=== PATIENT | female | born 1950 | race Caucasian/White ===

== ENCOUNTER 2020-11-30 12:04 | Emergency (ER) | payer MEDICARE, SELFPAY ==
[2020-11-30 12:12] VITALS: BP 181/82; PULSE 92; RESP 16; TEMP 36.8; O2SAT 98
--- NOTE | 2020-11-30 12:35 | ED_ITS ---
HPI - General Adult General: Chief complaint: Animal Bite Stated complaint: Dog Bite Time Seen by Provider: 11/30/20 12:08 History of Present Illness: HPI narrative: 70-year-old female presented to emergency room after sustaining a dog bite to the left arm at 830 this morning. Patient reports that the dog is a home pet that is fully vaccinated. Patient attempted to irrigate the site with peroxide and dabbed in alcohol. Patient is unaware of her tetanus status. No focal loss of function or significant bleeding. Onset:3 hrs ago Duration:3 hrs Location:home Severity:moderate Review of Systems Narrative: Constitutional: No fever, no chills. HEENT: No vision changes CV: No chest pain, no palpitations PULM: no cough, no dyspnea. GI: No abdominal pain, no N/V/D. : No dysuria MSKEL: No muscle pain SKIN: +LUE dog bite NEURO: No headache, no focal weakness. HEME: No visible bruises PSYCH: Normal mood [facility] Female Reproductive History: Date of last menstrual period: 05/04/20 Physical Exam Narrative: EXAM NARRATIVE: Head: Atraumatic Eyes: PERRL, conjunctiva without injection ENT: Mucous membrane moist NECK: Supple, ROM intact LUNGS: LCTAB, no crackles/rhonchi CV: RRR ABDOMEN: Soft, nontender in all quadrants EXTREMITY: Normal ROM, +L distal forearm stellate laceration SKIN: +L forearm laceration NEURO: Awake and alert, no focal motor deficits PSYCH: Normal mood and affect Course Vital Signs: Vital signs: Vital Signs Temperature 98.2 F 11/30/20 12:12 Pulse Rate 92 11/30/20 12:12 Respiratory Rate 16 11/30/20 12:12 Blood Pressure 181/82 11/30/20 12:12 Pulse Oximetry 98 11/30/20 12:12 MDM - General Adult MDM Narrative: Medical decision making narrative: 70-year-old female presents emergency room after sustaining a dog bite wound. Patient appears to have a stellate laceration over the left forearm. Neurovascularly intact in the upper extremity. Wound was extensively irrigated today. Patient received Tdap. Will not close wound given high risks of infection. Patient has Augmentin allergy will prescribe Bactrim and clindamycin Rx clindamycin 450mg TID and Bactrim DS BID x 10 days Disposition: Discharge. Patient counseled regarding diagnostic impression, treatment plan. Patient given ED strict return precautions to return for continuation, worsening, or development of new symptoms. Instructed to f/u w/ PCP for further wound check today. Patient verbalized understanding. Discharge Plan Discharge Patient Disposition: Home Clinical Impression: Dog bite Condition: Stable Prescriptions: New clindamycin HCl 300 mg capsule 450 mg PO TID 10 Days Qty: 45 RF: 0 Bactrim DS 800-160 mg tablet 1 tab PO BID 10 Days Qty: 20 RF: 0 Discharge Orders: Discharge ED (Routine); Ordered 11/30/20 Ordered By: Penelope Tran Discharge Diet: Advance as tolerated Discharge Activity: Resume usual activity Patient Instructions: Animal Bite (ED) Activity Restrictions/Additional Instructions: Come back to the emergency room for your bite wound is infected, if you have any fever or chills, any worsening symptoms, any new concerning complaints. Coding Level of Care Code ED Keyboard Instrument Tuner for Victoriano Mcginnis
[2020-11-30] MEDS: tetanus-dipt-pertussis 0.5 mL SDV IM (12:59)
== END 2020-11-30 13:08 | disposition home or self-care (01) ==
PROVIDERS: Emergency Provider Emergency Medicine
DX: S41.152A Open bite of left upper arm, initial encounter (principal); W54.0XXA Bitten by dog, initial encounter; Z23 Encounter for immunization
CPT/HCPCS: 90471; 90715; 99282

== ENCOUNTER 2022-03-12 10:03 | Observation (INO) | payer MEDICARE, SELFPAY ==
[2022-03-07 09:49] VITALS: BMI 25.9
--- NOTE | 2022-03-07 10:18 | ECG_ITS ---
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 Measurements Intervals [place] Rate: 52 P: 30 ME: 164 QRS: 48 QRSD: 76 T: 4 QT: 425 QTc: 399 Interpretive Statements SINUS BRADYCARDIA LOW QRS VOLTAGE IN PRECORDIAL LEADS [QRS DEFLECTION < 1.0 mV IN CHEST LEADS] SEPTAL MYOCARDIAL INFARCTION , PROBABLY OLD [40+ ms Q WAVE IN V1/V2] No previous ECG available for comparison Electronically Signed On 03-07-2022 16:00:47 BUSINESS PROCESS ANALYST by Rosa Maria Samson M.D. [id number]
--- NOTE | 2022-03-07 10:23 | P.ANESASSM_ITS ---
Pre-Anesthetic Assessment Height/Weight: Height 1.63 m Weight 68.492 kg Operation Date: 03/12/22 08:50 Proposed Procedures p Laparoscopic assisted vaginal hysterectomy, bilateral salpingo-oophorectomy 34721, Possible anterior and posterior repair 16707, Possible sling 38095 N81.4(Not Applicable) - Linda Donaldson MD s Laparoscopic Salpingo Oophorectomy(Bilateral) - Linda Donaldson MD s Anterior Repair(Not Applicable) - Linda Donaldson MD p Posterior Repair(Not Applicable) - Linda Donaldson MD s Sling(Not Applicable) - Linda Donaldson MD Familial anesthetic complications: None Social No alcohol and No tobacco Exam alert, oriented x 3, clear to auscultation bilaterally and regular rate & rhythm Airway Mallampati: Class II Dentition: partials Pulmonary None reported CV/HEM None reported does lots of walking, able to achieve 4 METS, works at [employer] doing activities None reported Hepatic None reported GI None reported Metabolic None reported Musc/skel None reported Neuropsych None reported Anesthetic Plan ASA status: 1 Anesthesia: General Risk of > 500 ml blood loss (7ml/kg in children): No Medications/Allergies Home Medications Medication Instructions Recorded Confirmed Last Taken Type biotin-calcium carbonate 800 5,000 tab PO 1XD 03/07/22 03/07/22 03/05/22 History mcg-195 mg tablet (Biotin-Calcium) ibuprofen 200 mg capsule 200 mg PO Q6H PRN Pain (Scale 03/07/22 03/07/22 0 03/07/22 History Score 4-6) nacbbtnyk-ydt-eqly fumarate 18 1 tab-cap PO QAM 03/07/22 03/07/22 03/06/22 History mg-FA 600 mcg-vit K 40 mcg capsule (Multi For Her) Allergies Allergy/AdvReac Type Severity Reaction Status Date / Time Penicillins Allergy Unknown Verified 03/07/22 09:41 PFSH Anesthesia Family History Mother Diabetes Heart disease Father Diabetes Hypercholesteremia Hypertension Denies family history of Colon cancer Ovarian cancer Breast cancer Uterine cancer Thyroid disease Stroke Female Reproductive History Date of last menstrual period: 05/04/20 Data Anesthesia Cardiac Studies: No Data to Display
[2022-03-07 10:27] LABS: Basophils % 0.8 %; Eosinophils % 0.6 %; Hematocrit 40.6 % (37.0-47.0); Hemoglobin 13.9 g/dL (11.5-15.3); Lymphocytes # 1.9 10^3/uL (0.8-4.8); Lymphocytes % 38.3 %; Mean Corpuscular HGB Conc 34.2 g/dL (30.0-36.0); Mean Corpuscular Hemoglobin 30.8 pg (28.0-34.0); Mean Corpuscular Volume 89.8 fl (81-99); Mean Platelet Volume 8.5 fL (7.4-10.4); Monocytes # 0.3 10^3/uL (0.2-0.9); Neutrophils # 2.74 10^3/uL (1.8-7.7); Neutrophils % 55.3 %; Nucleated Red Blood Cells % 0 %; Platelet Count 261 10^3/cmm (130-400); Red Blood Count 4.52 10^6/uL (4.1-5.3); Red Cell Distribution Width 11.9 % (12.1-15.1)
[2022-03-07 10:46] LABS: Anion Gap 20.1 (5-19); Blood Urea Nitrogen 13 mg/dL (8-23); Calcium 9.3 mg/dL (8.5-10.5); Carbon Dioxide 18 mmol/L (22-29); Chloride 99 mmol/L (98-107); Glomerular Filtration Rate 98.8 mL/min (90-130); Glucose 108 mg/dL (65-115); Osmolality Calculated 277 mOsm/kg (285-295); Potassium 4.1 mmol/L (3.5-5.1); Sodium 133 mmol/L (136-145)
[2022-03-12] VITALS (21 sets, daily range): BP systolic 88–136; BP diastolic 57–113; PULSE 72–107; RESP 14–20; TEMP 36.4–36.9; O2SAT 90–100; BMI 25.9
[2022-03-12] MEDS: gabapentin 300 mg Capsule PO (06:14)
[2022-03-12] MEDS: sodium chloride 0.9% 1,000 ML 30 ML IV (06:14)
[2022-03-12] MEDS: CELEcoxib 200 mg Capsule 400 MG PO (06:14)
[2022-03-12] MEDS: phenazopyridine 100 mg Tablet 200 MG PO ×3 (06:14→20:18)
[2022-03-12] MEDS: acetaminophen 1,000 MG/100 ML PIGGYBACK 400 MG IV (06:15)
[2022-03-12] MEDS: scopolamine 1.5 Patch 1 PATCH TRANSDERMA (06:15)
[2022-03-12] MEDS: midazolam 1 mg/mL INJ 2 mL 2 MG IVP (07:00)
[2022-03-12] MEDS: ceFAZolin 2,000 MG in sodium chloride 0.9% (plus) 50 ML 100 MG IV ×3 (07:05→22:32)
--- NOTE | 2022-03-12 07:07 | W.PM.OPSUD ---
Surgery/Procedure H&P Update DATE OF PROCEDURE: March 12, 2022 DATE H&P PERFORMED: 03/07/22 H&P UPDATE INFORMATION: I have reviewed H&P completed within last 30 days, I have examined patient prior to procedure and No changes to prior documentation PREOP DIAGNOSIS: Cystocele, uterine prolapse PLANNED PROCEDURE: Operation Date: 03/12/22 07:00 Proposed Procedures p Laparoscopic assisted vaginal hysterectomy, bilateral salpingo-oophorectomy 74463, Possible anterior and posterior repair 46786, Possible sling 34250 N81.4(Not Applicable) - Linda Donaldson MD s Laparoscopic Salpingo Oophorectomy(Bilateral) - Linda Donaldson MD s Anterior Repair(Not Applicable) - Linda Donaldson MD p Posterior Repair(Not Applicable) - Linda Donaldson MD s Sling(Not Applicable) - Linda Donaldson MD Related Problem List Diagnoses (1) Cystocele: (2) Uterine prolapse:
--- NOTE | 2022-03-12 07:39 | P.ANESUD_ITS ---
Pre-Anesthetic Update Pre-Anesthetic Assessment: Date of Surgery/Procedure: 03/12/22 Preop Jyotsna gnosis: Cystocele, uterine prolapse Proposed Procedure: Operation Date: 03/12/22 07:00 Proposed Procedures p Laparoscopic assisted vaginal hysterectomy, bilateral salpingo-oophorectomy 99985, Possible anterior and posterior repair 83447, Possible sling 60213 N81.4(Not Applicable) - Linda Donaldson MD s Laparoscopic Salpingo Oophorectomy(Bilateral) - Linda Donaldson MD s Anterior Repair(Not Applicable) - Linda Donaldson MD p Posterior Repair(Not Applicable) - Linda Donaldson MD s Sling(Not Applicable) - Linda Donaldson MD Any changes to Pre-Anesthetic Assessment?: No Last Intake: Intake Last Liquid Date 03/11/22 Last Liquid Time 20:00 Last Solid Date 03/11/22 Last Solid Time 08:00 Vitals: Temperature 98.5 F 03/12/22 05:47 Temperature Source Temporal Artery S can 03/12/22 05:47 Pulse Rate 98 03/12/22 05:47 Pulse Rhythm 03/12/22 05:47 Pulse Strength 3+ Normal 03/12/22 05:47 Respiratory Rate 18 03/12/22 05:47 Blood Pressure 118/65 03/12/22 06:58 Blood Pressure Greer n 82 03/12/22 06:58 Pulse Oximetry 98 03/12/22 05:47 Oxygen Delivery Me thod 03/12/22 05:47 Exam: Pre-Anes Outpt Exam: alert, oriented x 3, clear to auscultation bilaterally and regular rate & rhythm Cardiac Studies: No Data to Display
[2022-03-12] MEDS: vasopressin 20 unit/mL INJ INJECTION (07:45)
--- NOTE | 2022-03-12 09:22 | P.OP_ITS ---
Operative Report Date of procedure: March 12, 2022 Pre-op diagnosis: Preop Diagnosis Cystocele, uterine prolapse Post-op diagnosis: same Post-op findings: normal appearing vagina Procedure done: LAVH. BSO, anterior repair, perineorrhaphy, cystoscopy Specimens removed/disposition: uterus, tubes, ovaries to pathology Surgeon: Linda Donaldson Anesthesia: General Estimated blood loss (mL): 25 IV fluids (mL): 1,800 Urine output (mL): 800 Complications: none Findings: 6 week sized uterus, normal appearing tubes and ovaries. Grade 3 uterine prolapse with grade 2 cystocele, loose perineal body Condition: stable Disposition: PACU Procedure: The patient was taken to the operating room where general anesthesia was administered and found to be adequate. She was prepped and draped in the normal sterile fashion in the dorsal lithotomy position in Kwasi stirrups. A Aguilar catheter was placed. A weighted speculum was placed into the vagina and the anterior lip of the cervix was grasped with a single tooth tenaculum. The Zumi uterine manipulator was placed. The weighted speculum was removed. The gloves were changed and attention was turned to the abdomen. A 5 mm infraumbilical incision was made. Using a 5 mm port with the camera, the port was placed into the abdomen. The abdomen was insufflated. Two low, lateral 5 mm ports were placed on the left and right under direct visualization from the camera. The right tube was grasped and elevated. Using the laparoscopic cautery, the IP ligament was cauterized and cut. I continued to cauterize inferior to the fallopian tube, up to the uterus. This was performed the same way on the left. Bilateral tubes and ovaries were left attached to the uterus. The uteroovarian ligaments as well as the round ligaments were ligated. Attention was then turned to the vaginal portion of the procedure. The weighted speculum was placed into the vagina. The zumi manipulator was removed. The single tooth tenaculum was removed and replaced with the torrey's tenaculum. 10 mL of dilute Pitressin was injected at the vesicovaginal junction. A circumferential incision was made at the vesicovaginal junction and the vaginal mucosa reflected cephalad. The posterior peritoneum was entered sharply with the Metzenbaum scissors and the long weighted speculum replaced. Using the Alen clamps the uterosacral ligaments were clamped cut and suture- ligated. The anterior peritoneum was entered sharply with the metzenbaum s cissors. Then sequentially the uterine arteries and cardinal ligaments were clamped cut and suture-ligated. A single-tooth tenaculum was used to deliver the uterus. The remaining segement of the utero-ovarian ligaments were clamped cut and suture-ligated bilaterally and the specimen was removed. There was good hemostasis with only mild bleeding from the cuff. The peritoneum was closed with a pursestring using 2-0 Vicryl. The vaginal cuff was closed with 0 Vicryl in a running locked pattern incorporating the uterosacral ligaments into the lateral aspects of the vaginal cuff. The Aguilar catheter was removed and the cystoscope advanced into the bladder. The patient was given pyridium and bilateral spill was noted. There were no injuries or deficits noted in the bladder. The cystoscope was removed and the Aguilar was replaced. Attention was then turned to the anterior repair. The vaginal cuff was identified and an allis clamp was placed in the midline of the vaginal mucosa, approximately 2 cm anterior to the cuff. A second allis clamp was placed in the midline of the vaginal mucosa, approximately 3 cm inferior to the urethra. An incision was made in the midline from clamp to clamp. The vaginal mucosa was clamped laterally and the cystocle dissected off of the vesicovaginal fascia. The cystocele was packed away and the vesicovaginal fascia brought together in the midline with figure of 8 interrupted sutures of O-Vicryl. The packing was removed and the excess vaginal tissue trimmed. The incision was repaired with 0-Vicryl in a running fashion. The Aguilar catheter was removed and the cystoscope advanced into the bladder. There were no deficits noted to be in the bladder. Attention was then turned to the perineorrhphy. Allis clamps were placed on the posterior fourchette. A 3 cm wedge of the fourchette was removed. This was repaired in the usual fashion with O-vicryl. Vaginal packing was placed. The patient tolerated the procedure well. Sponge, lap and needle counts were correct times three. The abdominal incisions were closed with 3-o vicryl with skin glue. She was taken to the recovery room in stable condition.
[2022-03-12] MEDS: fentaNYL 50 mcg/mL INJ 2mL IVP (09:48)
[2022-03-12] MEDS: dextrose 5%-lactated ringers 1,000 ML 125 ML IV ×2 (11:19→20:18)
[2022-03-12] MEDS: HYDROcodone-acetaminophen 5-325 mg Tablet PO ×2 (12:45→19:17)
[2022-03-12] MEDS: ketorolac 30 mg/mL INJ IVP ×2 (14:44→22:32)
--- NOTE | 2022-03-12 15:15 | PC.NURSE ---
WHEN PATIENT CAME BACK FROM OR SHE COULD NOT OPEN HER EYES SHE SAID THAT THEY HURT, PATIENT STATED THAT THEY DID NOT HURT PRIOR TO SURGERY. PATIENT DID NOT WANT TO OPEN HER EYES SHE SAID IT WAS TO DARK AND HER ROOM WAS DARK, NO LIGHTS ON.THIS BED BUG EXTERMINATOR TALKED WITH NEPTALI AND ABDELRAHMAN AFTER ABOUT 30- HOUR AND THEY SAID THAT MAYBE HER NAUSEA PATCH MAY BE THE PROBLEM, PATCH REMOVED AND SITE CLEANED WITH ALCOHOL. AFTER ABOUT 30 MINUTES SHE STATED THAT THEY STILL HURT HER BUT SHE WAS ABLE TO OPEN THEM A LITTLE BUT THEY HURT REALLY BAD WHEN SHE DID. THIS BED BUG EXTERMINATOR WALKED HER DAUGHTER OUT AND THEN I STOPPED BY OR AND TALKED WITH DR. LINN AND LIONEL AND THEY GAVE ME SOME EYE OINTMENT TO TRY. RETURNED TO OB AND TOLD PATIENT WHAT I HAD TO TRY AND SHE WAS IN TOTAL AGREEMENT. TOLD HER TO TRY NOT TO RUB HER EYES AND THEN I WENT BACK IN AT THE ONE HOUR OLINDA AND SHE WAS ABLE TO OPEN HER EYES BUT STATED THAT THEY STILL FELT SCRATHY. 1500 WAS GOING TO GET PATIENT UP BUT SHE WANTED TO WAIT TILL HER EYES FELT BETTER AND SHE COULD KEEP THEM OPEN BETTER. SHE SAID THAT THEY STILL FELT TO BAD TO HOLD THEM OPEN. TOLD HER THAT WAS OK AND WE WOULD TRY LATER.
--- NOTE | 2022-03-12 16:00 | ANE.PACU2 ---
Inpatient post-anesthesia follow up: Airway intact: Yes Vital signs: Temperature 97.7 F Pulse Rate 101 Respiratory Rate 16 Blood Pressure 122/79 Pulse Oximetry 95 Oxygen Delivery Me thod Room Air Oxygen Flow Rate 2 Fraction of Inspir ed Oxygen Hydration adequate: Yes Nausea and vomiting: No Pain level: 3 Mental status: Baseline
[2022-03-12] MEDS: docusate sodium 100 mg Capsule PO (19:17)
[2022-03-12] MEDS: ondansetron 2 mg/ML SDV 2 mL 4 MG IVP (22:34)
[2022-03-13] MEDS: HYDROcodone-acetaminophen 5-325 mg Tablet PO ×2 (02:00→08:03)
[2022-03-13] MEDS: ketorolac 30 mg/mL INJ IVP (04:28)
[2022-03-13 04:50] VITALS: BP 144/78; PULSE 79; RESP 16
[2022-03-13 05:04] LABS: Hematocrit 36.3 % (37.0-47.0); Hemoglobin 12.4 g/dL (11.5-15.3); Mean Corpuscular HGB Conc 34.2 g/dL (30.0-36.0); Mean Corpuscular Hemoglobin 30.8 pg (28.0-34.0); Mean Corpuscular Volume 90.1 fl (81-99); Mean Platelet Volume 8.8 fL (7.4-10.4); Platelet Count 232 10^3/cmm (130-400); Red Blood Count 4.03 10^6/uL (4.1-5.3); Red Cell Distribution Width 11.8 % (12.1-15.1); White Blood Count 12.3 10^3/uL (4.0-10.0)
--- NOTE | 2022-03-13 05:49 | PC.NURSE ---
Packing removed at this time.
--- NOTE | 2022-03-13 07:19 | PM.DCS ---
Discharge Providers Date of Admission: 03/12/22 10:03 Date of Discharge: March 13, 2022 Attending Provider at Admission: Linda Donaldson MD Attending Provider at Discharge: Linda Donaldson MD Diagnoses at Discharge Discharge Diagnosis (1) Cystocele: Status: Acute (2) Uterine prolapse: Status: Acute Reason for Visit Reason for Visit: uterovaginal prolapse, unspecified Hospital Course Hospital Course The patient was admitted for surgery. She did well postoperatively and was ready for discharge on day #1 Physical Exam Narrative: The patient was doing well this morning. No concerns. Catheter and packing have been removed. She is tolerating a regular diet and ambulating without difficulty. Pain is well controlled Const: COMMON NORMALS: no acute distress, average body habitus, patient oriented x3, no limitations, healthy appearing, alert and well nourished GENERAL APPEARANCE: cooperative, comfortable, well kempt and well developed ORIENTATION/CONSCIOUSNESS: Yes awake, Yes oriented to person, Yes oriented to place and Yes oriented to time Resp: COMMON NORMALS: normal respiratory effort EFFORT & INSPECTION: Yes able to speak in complete sentences GI: COMMON NORMALS: Soft to palpation and non-tender PALPATION: Yes Soft to palpation Extremity: COMMON NORMALS: no calf tenderness Neuro: COMMON NORMALS: patient oriented x3 SENSORIUM/ORIENTATION: Yes alert, Yes oriented to person, Yes oriented to place and Yes oriented to time Psych: COMMON NORMALS: mental status grossly normal, Normal thought process present, cooperative, normal affect and speech normal APPEARANCE: Yes well kempt SPEECH: Yes normal speech THOUGHT PROCESS: Normal thought process present Urinary Catheter Management: Aguilar Latex: Cath Placed During This Visit: yes, but has since been removed by the nurse Reason for Continuing Indwelling Catheter: Decision to DC Catheter Urinary Catheter Date of Insertion: 03/12/22 Date Urinary Catheter Removed: 03/13/22 Time Urinary Catheter Discontinued: 05:49 Discharge Data Studies Completed and Pending Pending at discharge Category Date Time Status Urine Culture Routine Lab 03/12/22 07:35 Received Pathology: Surgical [PTH] Routine Pth 03/12/22 09:34 Received Laboratory Results WBC 12.3 10^3/uL (4.0-10.0) H 03/13/22 04:45 RBC 4.03 10^6/uL (4.1-5.3) L 03/13/22 04:45 Hgb 12.4 g/dL (11.5-15.3) 03/13/22 04:45 Hct 36.3 % (37.0-47.0) L 03/13/22 04:45 MCV 90.1 fl (81-99) 03/13/22 04:45 MCH 30.8 pg (28.0-34.0) 03/13/22 04:45 MCHC 34.2 g/dL (30.0-36.0) 03/13/22 04:45 RDW 11.8 % (12.1-15.1) L 03/13/22 04:45 Plt Count 232 10^3/cmm (130-400) 03/13/22 04:45 MPV 8.8 fL (7.4-10.4) 03/13/22 04:45 Neut % (Auto) 55.3 % 03/07/22 10:15 Lymph % (Auto) 38.3 % 03/07/22 10:15 [place] % (Auto) 5.0 % 03/07/22 10:15 Eos % (Auto) 0.6 % 03/07/22 10:15 Baso % (Auto) 0.8 % 03/07/22 10:15 Neut # (Auto) 2.74 10^3/uL (1.8-7.7) 03/07/22 10:15 Lymph # (Auto) 1.9 10^3/uL (0.8-4.8) 03/07/22 10:15 [place] # (Auto) 0.3 10^3/uL (0.2-0.9) 03/07/22 10:15 Eos # (Auto) 0.0 10^3/uL (0.0-0.8) 03/07/22 10:15 Baso # (Auto) 0.0 10^3/uL (0.0-0.1) 03/07/22 10:15 Nucleated RBC % (auto) 0 % 03/07/22 10:15 Nucleated RBCs # 0.0 /100WBC 03/07/22 10:15 Sodium 133 mmol/L (136-145) L 03/07/22 10:15 Potassium 4.1 mmol/L (3.5-5.1) 03/07/22 10:15 Chloride 99 mmol/L (98-107) 03/07/22 10:15 Carbon Dioxide 18 mmol/L (22-29) L 03/07/22 10:15 Anion Gap 20.1 (5-19) H 03/07/22 10:15 BUN 13 mg/dL (8-23) 03/07/22 10:15 Creatinine 0.6 mg/dL (0.5-0.9) 03/07/22 10:15 GFR Calculation 98.8 mL/min (90-130) 03/07/22 10:15 Glucose 108 mg/dL (65-115) 03/07/22 10:15 Calculated Osmolality 277 mOsm/kg (285-295) L 03/07/22 10:15 Calcium 9.3 mg/dL (8.5-10.5) 03/07/22 10:15 Blood Type O Positive 03/07/22 10:15 Rho(D) Type Positive 03/07/22 10:15 Antibody Screen Negative 03/07/22 10:15 Vitals Last Vital Signs Temp 97.6 F 03/12/22 21:30 Pulse 79 03/13/22 04:50 Resp 16 03/13/22 04:50 BP 144/78 03/13/22 04:50 Pulse Ox 95 03/12/22 21:30 O2 Del Method 03/12/22 21:30 O2 Flow Rate 2 03/12/22 10:20 Discharge Plan Discharge Patient Disposition: Home Condition: Stable Prescriptions: New ibuprofen 800 mg Tablet 800 mg PO Q8H Qty: 30 0RF hydrocodone-acetaminophen 5-325 mg Tablet 1 tab PO Q4H PRN (Reason: Moderate To Severe Pain) Qty: 30 0RF docusate sodium 100 mg Capsule 100 mg PO BID Qty: 60 0RF Continued ibuprofen 200 mg Capsule 200 mg PO Q6H PRN (Reason: Pain (Scale Score 4-6)) Biotin-Calcium 800-195 mcg-mg Tablet 5,000 tab PO 1XD Multi For Her 18 mg iron-600 mcg-40 mcg Capsule 1 tab-cap PO QAM Discharge Orders: Discharge Order (Routine); Ordered 03/13/22 Ordered By: Linda Donaldson Referrals: Linda Donaldson MD [Physician] - 03/18/22 1:30 pm (* Your 2 week postop appointment is with Dr. Donaldson on 03/18/2022 at 1:30pm * Your 6 week follow up appointment is on 04/22/2022 at 10:45am) Patient Instructions: Salpingo-Oophorectomy (DC), Laparoscopic Hysterectomy (DC), Vaginal Hysterectomy (DC), OB Discharge Report, OB Food/Drug Interaction Guide, Opioid Safety Discharge Attestations Time Spent in Discharge Care*: less than 30 min Quality Metrics Clinical Quality Measures [ No reported AMI, CVA or VTE this stay] Coding Level of Care Code Acute Chg FW DC note Diagnoses Cystocele Uterine prolapse N81.4
[2022-03-13] MEDS: docusate sodium 100 mg Capsule PO (08:00)
[2022-03-13] MEDS: phenazopyridine 100 mg Tablet 200 MG PO (08:00)
[2022-03-13 09:59] VITALS: BP 169/76; PULSE 86; RESP 15; TEMP 36.9
== END 2022-03-13 09:55 | disposition home or self-care (01) ==
LOC: OBGYN 10:03
PROVIDERS: Admitting Provider Obstetrics & Gynecology; Visit Provider Obstetrics & Gynecology
PROC: 0UT9FZZ Resection of Uterus, Via Natural or Artificial Opening With Percutaneous Endoscopic Assistance (ICD-10-PCS; CPT 12002; principal; 2022-03-12 07:00)
PROC: (CPT 58661; 2022-03-12 07:00)
PROC: 0JQC0ZZ Repair Pelvic Region Subcutaneous Tissue and Fascia, Open Approach (ICD-10-PCS; CPT 57240; 2022-03-12 07:00)
PROC: (CPT 57250; 2022-03-12 07:00)
DX: N81.4 Uterovaginal prolapse, unspecified (principal); R10.2 Pelvic and perineal pain
CPT/HCPCS: 12002; 57240; 58552; 36415; 80048; 85025; 85027; 86850; 86900; 87086; 88305; 93005; 96374; 96376; G0378; J0131; J0690; J1100; J1885; J1940; J2250; J2405; J2704; J2710; J3010; J3490; J7030; J7121